=== PATIENT | male | born 1955 | race Caucasian/White ===

== ENCOUNTER → 2018-12-06 10:59 | Outpatient (CLI) | payer BC, SELFPAY ==
--- NOTE | 2018-12-06 11:07 | XR_ITS ---
XR chest 2V HISTORY: ITS.REASON: COUGH ORDERING PHYSICIAN: Marito Mckeon MD PATIENT AGE: 62 years COMPARISON: 11/30/2010 FINDINGS: The cardiomediastinal silhouette and pulmonary vascularity are within normal limits. The lungs are clear without infiltrates, suspicious nodules, or pleural effusions. No acute bony abnormalities. IMPRESSION: Negative chest, no acute finding
== END ==
PROVIDERS: PCP Family Medicine; Visit Provider Family Medicine
DX: R05 Cough (principal)
CPT/HCPCS: 71046

== ENCOUNTER → 2019-04-24 14:48 | Outpatient (CLI) | payer SELFPAY ==
--- NOTE | 2019-04-24 15:24 | CT_ITS ---
PROCEDURE: CT HEART W CALCIUM SCORE CLINICAL HISTORY: SCREENING COMPARISON: No exams were available for comparison TECHNIQUE: Axial images obtained with sagittal and coronal reformats. All CT scans at the facility use one or more dose reduction, viz: automated exposure control, ma/kV adjustment per patient size (including targeted exams where dose is matched to indication, i.e. head), or iterative reconstruction technique. FINDINGS: Coronary artery calcium score is 340 indicating and moderate plaque burden with high cardiovascular disease risk. Incidentally noted are mild atelectatic or fibrotic changes in the left lower lobe and lingula IMPRESSION: Moderate plaque burden with high cardiovascular disease risk Dictated by: Wilton Lunsford MD 04/25/2019 06:40 Electronically signed by Wilton Lunsford MD in [place] 04/25/2019 06:40
== END ==
PROVIDERS: PCP Family Medicine; Visit Provider Family Medicine
DX: Z13.6 Encounter for screening for cardiovascular disorders (principal)
CPT/HCPCS: 75571

== ENCOUNTER 2021-06-06 11:08 | Emergency (ER) | payer MEDICARE, SELFPAY ==
[2021-06-06 12:14] VITALS: BP 144/91; PULSE 102; RESP 18; TEMP 37.1; O2SAT 96; BMI 34.4
--- NOTE | 2021-06-06 12:22 | HMH.EDUTC ---
[facility] Disposition Clinical Impression: Acute sinus infection Qualifiers: Sinusitis location: unspecified location Recurrence: non-recurrent Qualified Code(s): J01.90 - Acute sinusitis, unspecified Disposition: Home, Self-Care Condition on Discharge: Good Instructions: Sinusitis, DI for Sinusitis Additional Instructions: Drink plenty of fluids. Take tylenol or ibuprofen for pain or fever. Take the medications as directed. Follow up with your regular doctor. GO TO THE ER FOR ANY WORSENING SYMPTOMS Quarantine until you know the results of your covid-19 test. If it is positive, the health department should call you and give you further instructions about your length of Quarantine and other things. Notify your school or workplace of your results and follow their instructions regarding return to work/school. Prescriptions: Promethazine/Dextromethorphan [Promethazine-Dm Syrup] 5 ml PO Q6HP PRN #240 ml PRN Reason: Cough Transmission Status: Received by [facility] Amoxicillin/Potassium Clav [Augmentin 875-125 Tablet] 1 tab PO Q12H 10 Days #20 tab Transmission Status: Received by [facility] Benzonatate [Benzonatate 100mg cap] 100 mg PO TIDP PRN #30 cap PRN Reason: Cough Transmission Status: Received by [facility] methylPREDNISolone [Medrol] 4 mg PO DIRECTED 6 Days #21 packet Transmission Status: Received by [facility] guaiFENesin [Mucinex 600mg tablet] 1 - 2 tab PO BIDP PRN #30 tab PRN Reason: Congestion Transmission Status: Received by [facility] Referrals: Artem Trammell MD [Primary Care Provider] - Time of Disposition: 12:53 Medical Decision Making - Medical Records Medical records reviewed: No: I reviewed the patient's medical records. - Rangel Inquiry Pt receiving controlled substance: No Vital Signs: 06/06/21 12:14 06/06/21 13:00 Temperature 98.8 F 98.8 F Temperature Source Oral Pulse Rate 102 H Pulse Rate [Right Brachial] 102 H Respiratory Rate 18 18 Blood Pressure 144/91 H Blood Pressure [Right Arm] 144/91 H Blood Pressure Mean [Right Arm] 108 Blood Pressure Source [Right Arm] Automatic Cuff Blood Pressure Position [Right Arm] Sitting 02 Sat by Pulse Oximetry 96 Orders (Tests/Meds): ED MEDICATIONS Discontinued Medications Generic Name Dose Route Start Last Admin Trade Name Benjamin PRN Reason Stop Dose Admin Ceftriaxone Sodium 1 gm 06/06/21 12:49 06/06/21 12:59 Ceftriaxone 1gm Vial IM 06/06/21 12:50 1 gm ONCE ONE Administration Lidocaine HCl 0 ml 06/06/21 12:49 06/06/21 12:59 Lidocaine 1% 5ml Pf Vial IM 06/06/21 12:50 2.1 ml ONCE ONE Administration Methylprednisolone Sodium Succinate 125 mg 06/06/21 12:49 06/06/21 13:00 Methylprednisolone Sod Succ 125mg Vial IM 06/06/21 12:50 125 mg ONCE ONE Administration [facility] HPI - General Stated complaint: coivd test/symptoms Time Seen by Provider: 06/06/21 12:22 Mode of Arrival: Ambulatory Source of Information: Patient Description of Symptoms (Recalled from Triage Doc. by RN): sinus issues. headache. cough HEENT Symptoms (Recalled from RN notes): Yes Resp Symptoms (Recalled from RN notes): Yes Skin Symptoms (Recalled from RN notes): No MS Symptoms (Recalled from RN notes): No Functional Status (Recalled from RN notes): yes - History of Present Illness Provider Complaint: He states that he has had sinus congestion, sore throat and a cough for the past 3 days. He has been fully vaccinated for covid-19, but he would like to be tested anyway because of Thanksgiving coming up. He has a history of getting sinus infections in the fall like now. - Related Data Home Medications Medication Instructions Recorded Confirmed Citalopram Hydrobromide 20 mg PO DAILY 06/06/21 06/06/21 [Citalopram 20mg Tablet] Fluticasone Propionate 16 gm * DAILY 06/06/21 06/06/21 Montelukast Sodium 10 mg PO DAILY 06/06/21 06/06/21 taras
[2021-06-06 13:00] VITALS: BP 144/91; PULSE 102; RESP 18; TEMP 37.1; O2SAT 96
== END 2021-06-06 13:00 | disposition home or self-care (01) ==
PROVIDERS: Emergency Provider Nurse Practitioner Family; PCP Family Medicine
DX: U07.1 COVID-19 (principal); J01.90 Acute sinusitis, unspecified
CPT/HCPCS: G0463; 96372; 99202; C9803; U0003; U0005

== ENCOUNTER → 2023-05-01 13:40 | Outpatient (CLI) | payer MEDICARE, SELFPAY | PROVIDERS: PCP Family Medicine; Visit Provider Family Medicine | DX: G47.30 Sleep apnea, unspecified (principal); R40.0 Somnolence; R51.9 Headache, unspecified; R06.83 Snoring; G47.33 Obstructive sleep apnea (adult) (pediatric) | CPT/HCPCS: G0399 ==

== ENCOUNTER 2024-01-30 12:26 | Outpatient (CLI) | payer MEDICARE, SELFPAY ==
--- OUTSIDE RECORDS SUMMARY | 2024-01-30 12:30 | XMS_ITS ---
Author Name Unknown Organization [facility] No information ASSESSMENT No information CHIEF COMPLAINT No information Immunizations Date Vaccine Dateadministered Timeadministered Vaccinecode Do se Reel Slitter Duedate Cptcode Cvxcode Manufacturercode Administeredby 02/20 00:00 :00 Shingrix 02/20/2023 09:25:00 09:25:00 [id number] 11/29/19 00:00:00 [id number] 121 [email or web address]ff 05/26 00:00 :00 Shingrix 05/26/2023 08:30:00 08:30:00 [id number] [employer] ne 04/15/20 00:00:00 [id number] 121 [email or web address]ff OBJECTIVE DATA No information PHYSICAL EXAMINATION No information TREATMENT PLAN No information PROBLEMS No information RESULTS No information REVIEW OF SYSTEMS No information SUBJECTIVE DATA No information VITAL SIGNS No information MEDICATIONS No information
== END 2024-01-30 23:59 | disposition home or self-care (01) ==
PROVIDERS: PCP Family Medicine; Visit Provider Family Medicine
DX: I49.9 Cardiac arrhythmia, unspecified (principal)
CPT/HCPCS: 93225; 93227

== ENCOUNTER 2024-02-16 15:19 | Outpatient (CLI) | payer MEDICARE, SELFPAY | END 2024-02-16 23:59 | disposition home or self-care (01) | LOC: RT 15:23 | PROVIDERS: PCP Family Medicine; Visit Provider Family Medicine | DX: I49.9 Cardiac arrhythmia, unspecified (principal); I47.19 Other supraventricular tachycardia | CPT/HCPCS: 93270 ==

== ENCOUNTER 2024-03-06 10:15 | Outpatient (CLI) | payer MEDICARE, SELFPAY ==
--- NOTE | 2024-03-06 10:15 | CA_ITS ---
APPROVED REPORT EXAM: Comprehensive 2D, Doppler, and color-flow Echocardiogram Head Bookkeeper: Cindi Gomez CRT Ht: 5 ft 9 in Wt: 230lbs BSA: 2.19 BP: 127/92 mmHg Indications: Abnormal ECG, Chest Pain, CAD 2D Dimensions LA Volume 35.00 mL LA Volume Index 15.60 mL/m2 (M/F) 16-34 M-Mode Dimensions RVDd 3.26 cm (0.9-2.6) LA Diam 3.67 cm (1.9-4.0) LVDd 4.78 cm (3.5-5.7) LVDs 2.30 cm (3.5-5.7) IVSd 1.84 cm (0.6-1.1) PWd 0.60 cm (0.6-1.1) EF (Teich) 83.00% FS 51.90% EDV (Teich) 106.50 mL TAPSE 1.70 (<1.7) ESV (Teich) 18.10 mL LV Diastology E Decel Time 203 (160-240 msec) E/A Ratio 0.76 MED A' 9.20 cm/s LAT A' 10.90 cm/s Aortic Valve AO Peak GR. 6.40 mmHg Mitral Valve MV E Max Chris. 50.0 (40-130 cm/s) MV A Velocity 66.0 (40-130 cm/s) E/A Ratio 0.76 MV PHT 60.0 ms Pulmonary Valve PV Peak Velocity 127.0 (50-150 cm/s) Tricuspid Valve TR P. Velocity 217.00 cm/s RAP Estimate 10.00 mmHg RVSP 28.80 mmHg Left Ventricle The left ventricle is normal size. The left ventricular systolic function is normal. The left ventricular ejection fraction is within the normal range. There is increased LV wall thickness. There is normal LV segmental wall motion. The left ventricular diastolic function is normal. LVEF is 55%. Right Ventricle Right ventricle is mildly dilated. Right ventricle is mildly hypokinetic. Atria The left atrium size is normal. The right atrium size is normal. There is no color Doppler evidence of interatrial shunt. Aortic Valve The aortic valve is mildly thickened. There is no aortic valvular stenosis. No aortic regurgitation is present. Mitral Valve The mitral valve is normal in structure. No evidence of mitral valve stenosis. There is no mitral valve regurgitation noted. Tricuspid Valve Tricuspid valve is grossly normal in structure and function. Mild tricuspid regurgitation. RVSP is 20-25 mmHg. Pulmonic Valve The pulmonary valve is normal in structure. Trace pulmonic regurgitation. Great Vessels The aortic root is normal in size. The ascending aorta is normal in size. IVC is normal in size and collapses >50% with inspiration. Pericardium There is no pericardial effusion. Other Information Study Quality: Fair Conclusion Normal LV systolic function. Mild RV dilation with mild reduction in RV function. Mild TR. Electronically signed by : Beverly Iraheta MD 03/11/2024 11:50:45
--- NOTE | 2024-03-06 10:55 | NM_ITS ---
APPROVED REPORT Exam: Nuclear Stress Test Indication: htn, diabetes, hyperlipidemia, c.p., sob, abn ekg Patient Location: Outpatient Stress Tech: Gissel Trejo [place] Tech:Geri Sim, ARRT, RT (R)(N) Ht: 5 ft 9 in Wt: 225 lbs HR: 84 bpm BP: 157/107 mmHg BSA: 2.17 m2 TID: 1.16 BMI: 33.2 History: htn, diabetes, hyperlipidemia, c.p., sob, abn ekg Procedure: Patient exercised on Hugh protocol 7:09 minutes and sec, resting heart rate 154 bpm, resting blood pressure 178/90 mmHg, with exercise maximum heart rate achived was 154 bpm which is 101 % of the maximum predicted heart rate and blood pressure was 178/90 mmHg. Test was stopped due to fatigue. Patient has average exercise capacity, achieved 10.1 METs of workload on treadmill, the blood pressure response to exercise was normal . Cardiac Stress and Resting SPECT Images: Cardiac Stress and Resting SPECT images were obtained using technetium 99m Myoview 32.2 mCi stress and 10.28 mCi at rest. Resting and stress imaging in supine and prone positions demonstrate a medium-sized, moderate, predominantly reversible perfusion defect in the basal to mid inferior LV wall. Gated imaging demonstrates low-normal global LV systolic function. There is mild hypokinesis in the inferior LV wall. LVEF is calculated at 52%. Conclusion: Medium-sized, moderate, predominantly reversible perfusion defect in the basal to mid inferior LV wall. Findings are suggestive of reversible ischemia. Gated imaging demonstrates low-normal global LV systolic function. There is mild hypokinesis in the inferior LV wall. LVEF is calculated at 52%. Electronically signed by : Beverly Iraheta MD 03/07/2024 18:12:49
[2024-03-06] MEDS: SODIUM CHLORIDE 0.9% 10ML SYR (RAD ONLY) 10 ML IV ×2 (11:45→13:05)
--- NOTE | 2024-03-06 13:32 | CA_ITS ---
APPROVED REPORT Exam: Exercise Treadmill Technologist: Gissel Ewing, Ht: 5 ft 9 in Wt: 230 lbs BSA: 2.19 m2 HR: 71 bpm BP: 156/111 mmHg Rhythm: NSR Medical History Medications: Omeprazole,,,,, Simvastatin,,,,, Glimepiride,,,,, Carvedilol,,,,, Citalopram,,,,, Farxiga,,,,, Montelukast,,,,, Ativan,,,,, Levocetirizine,,,,, FluTICASONE Propionate,,,,, Testosterone oypionate,,,,, Stress Test Details Test: Hugh HR Resting HR: 84 bpm Max Heart Rate (APMHR): 152 bpm Max HR Achieved: 154 bpm Target HR (85% APMHR): 129 bpm % of APMHR: 101 Recovery HR: 80 bpm BP Resting BP: 157.0/107.0 mmHg Max BP: 178.0/90.0 mmHg Recovery BP: 141.0/85.0 mmHg ECG Resting ECG: NSR, cannot R/O old inferior [place] Stress EC mm horizontal ST depression Arrhythmia: PACs, PVCs, 1 ventricular couplet Recovery ECG: Return to baseline within 3 minutes of recovery Recovery Arrhythmia: PACs, PVCs Clinical Exercise duration: 07:09 min Highest Stage Achieved: III Exercise capacity: 10.1 METs Stress ECG Conclusion Exercised 7:09 on Hugh Protocol Max HR: 154 % of PM: 101% Max BP: 178/90 METs: 10.1 Test stopped due to: Light-headed, SOA Symptoms: Light-headed. No CP. Arrhythmias/Ectopy: PAC, PVC, One ventricular couplet. ST-T Changes: [address] depression. Conclusion: EKG changes (+) for ischemia. Myoview images reported separately. Test Summary REST . . . . . . . Sitting REST . . . . . . . Standing REST 05:10 0.0 0.0 84 . 157/107 . . Stage 1 01:00 10.0 1.7 100 . . . . Stage 1 02:00 10.0 1.7 114 . . . . Stage 1 03:00 10.0 1.7 117 . 164/ 90 . . Stage 2 01:00 12.0 2.5 122 . . . . Stage 2 02:00 12.0 2.5 127 . . . . Stage 2 03:00 12.0 2.5 140 . 178/ 90 . . Stage 3 . . . . . . . Myoview Injected Stage 3 01:00 14.0 3.4 149 . . . . Stage 3 01:09 14.0 3.4 151 . . . Stop exercise at 07:09 RECOVERY 01:00 0.0 0.0 118 . . . . RECOVERY 02:00 0.0 0.0 93 . . . . RECOVERY 03:00 0.0 0.0 91 . 153/ 90 . . RECOVERY 04:00 0.0 0.0 92 . 157/ 93 . . RECOVERY 05:00 0.0 0.0 87 . 157/ 93 . . RECOVERY 05:56 0.0 0.0 87 . 141/ 85 . . Electronically signed by : Beverly Iraheta MD 03/07/2024 18:08:54
[2024-03-06] MEDS: ISOTOPE MYOVIEW (PER STUDY) 1 DOSE IV (14:54)
== END 2024-03-06 23:59 | disposition home or self-care (01) ==
LOC: RT 10:15
PROVIDERS: PCP Family Medicine; Visit Provider Nurse Practitioner
DX: R07.9 Chest pain, unspecified (principal); I51.7 Cardiomegaly; I25.10 Atherosclerotic heart disease of native coronary artery without angina pectoris; R06.00 Dyspnea, unspecified; R42 Dizziness and giddiness; R93.1 Abnormal findings on diagnostic imaging of heart and coronary circulation
CPT/HCPCS: 78452; 93017; 93018; 93306; A9502

== ENCOUNTER 2024-04-15 07:52 | Day surgery (SDC) | payer MEDICARE, SELFPAY ==
[2024-04-15] VITALS (9 sets, daily range): BP systolic 128–155; BP diastolic 61–98; PULSE 57–75; RESP 18–20; TEMP 36.6; O2SAT 90–98; BMI 33.7
--- NOTE | 2024-04-15 07:06 | IR_ITS ---
APPROVED REPORT Patient Location: Outpatient PROCEDURES Left heart catheterization Left ventriculogram Selective coronary angiogram INDICATION Abnormal Myoview, Angina pectoris, Abnormal CCTA, Established coronary artery disease Informed consent was obtained prior to the procedure. COMPLICATIONS NONE Estimated Blood Loss: LESS THAN 10 ML TECHNIQUE One percent lidocaine used to anesthetize the right anterior aspect of the wrist. The right radial artery was accessed via the Seldinger technique. A 6 [place] sheath was placed in the right radial artery. 2.5 mg of Verapamil, 800 mcg of nitroglycerin, 1mg Lidocaine and 5000 U Heparin were given through the arterial sheath. The papa catheter was also used to perform left heart catheterization, left ventriculogram and selective coronary angiogram. At the end of the procedure the sheath was removed good hemostasis was achieved using Traclet band, patient was transferred to the postop holding area in stable condition. ANGIOGRAPHIC RESULTS The left main artery Normal The left anterior descending artery Has proximal 30% calcified stenosis with an additional mid vessel 30% calcified stenosis. A large first diagonal artery originates within the proximal 30% stenosis with the diagonal having an eccentric calcified 70 to 80% stenosis with the diagonal artery being 2.75 mm in diameter The circumflex artery Is nondominant and has proximal 10 to 20% stenoses with a 20% stenosis in the proximal portion of the large first obtuse marginal artery. The second obtuse marginal artery is approximately 2 mm in diameter and has an ostial 50% stenosis The right coronary artery Is dominant and has a proximal concentric 30% stenosis The MARTIN ventriculogram reveals Normal 65% The left ventricular end-diastolic pressure 10 mmHg IMPRESSION Coronary artery disease as described above most notably with severe stenosis in the ostial proximal segment of a medium to large first diagonal artery which is best managed medically Diffuse mild to moderate coronary disease as described above Normal ejection fraction Normal LVEDP PLAN 1. Recommend medical management at this time with aggressive risk factor modification 2. Diagonal artery stenoses such as what is described above respond favorably to medical management. LDL should be less than 55 to be achieved with high intensity statin 3. Maximize antianginal medications 4. Should patient's angina become recalcitrant in the future and and refractory to standard medications consideration could be given to stent the LAD and diagonal artery. The diagonal artery cannot be stented without placing a bifurcating stent in the proximal LAD. Because of this medical management is most warranted Electronically signed by : Jori Hallman MD 04/15/2024 12:13:27
[2024-04-15 08:29] LABS: Basophils % 0.2 % (0.1-2.0); Eosinophils # 0.1 K/mm3 (0.0-0.4); Eosinophils % 1.2 % (0.1-12.0); Hematocrit 49.9 % (42.0-52.0); Hemoglobin 15.6 g/dL (14.1-18.0); Lymphocytes % 17.3 % (10-50); Mean Corpuscular HGB Conc 31.3 g/dL (31.8-35.4); Mean Corpuscular Hemoglobin 28.5 pg (27.0-31.2); Mean Corpuscular Volume 91.2 fl (80-94); Mean Platelet Volume 6.5 fl (7.4-10.4); Monocytes # 0.5 K/mm3 (0.1-1.0); Neutrophils # 8.9 K/mm3 (1.8-7.8); Neutrophils % 77.2 % (37.0-80.0); Platelet Count 284 K/mm3 (142-424); Red Blood Count 5.47 M/mm3 (4.60-6.20); Red Cell Distribution Width 14.3 % (11.5-17.5); White Blood Count 11.5 K/mm3 (4.8-10.8)
[2024-04-15 08:31] LABS: Chloride 100 mmol/L (98-107)
[2024-04-15 08:32] LABS: Potassium 3.8 mmoL/L (3.5-5.1); Sodium 138 mmol/L (136-145)
[2024-04-15 08:34] LABS: Blood Urea Nitrogen 23 mg/dl (9-20); Creatinine Clearance Estimated 104 mL/min (50-200); Estimated Glomerular Filt Rate 84 ml/min (>60); GFR (African American) 102 ML/MIN (>60)
[2024-04-15 08:35] LABS: Anion Gap 10.8 mEq/L (5-15); Calcium 9.9 mg/dl (8.4-10.2); Carbon Dioxide 31 mmol/L (22.0-30.0); Glucose 163 mg/dl (74-100)
[2024-04-15] MEDS: VERAPAMIL 2.5MG/ML 2ML VIAL 2.5 MG IV (11:02)
[2024-04-15] MEDS: LIDOCAINE 1% 10ML MDV 20 ML IJ (11:02)
[2024-04-15] MEDS: diphenhydrAMINE 50MG/ML VIAL 50 MG IV (11:02)
[2024-04-15] MEDS: NITROGLYCERIN 800MCG/8ML SYR (CATH LAB) 800 MCG IA (11:03)
[2024-04-15] MEDS: HEPARIN 1,000 UNITS/ML 10ML VIAL (CATH LAB) 10000 UNIT IV (11:03)
[2024-04-15] MEDS: HEPARIN 1,000 UNITS/500ML NS (CATH LAB) 3000 UNIT IV (11:03)
[2024-04-15] MEDS: 0.9 % SODIUM CHLORIDE 500 ML 25 ML IV (11:04)
[2024-04-15] MEDS: MIDAZOLAM HCL 1MG/1ML 5ML VIAL 1 MG IV (11:06)
[2024-04-15] MEDS: FENTANYL 100MCG/2ML VIAL 50 MCG IV (11:06)
[2024-04-15] MEDS: IOPAMIDOL-370 (76%);100ML BOTTLE 80 ML IV (14:24)
== END 2024-04-15 13:52 | disposition home or self-care (01) ==
PROVIDERS: PCP Family Medicine; Visit Provider Internal Medicine
DX: R93.1 Abnormal findings on diagnostic imaging of heart and coronary circulation (principal); R42 Dizziness and giddiness; R06.00 Dyspnea, unspecified; R07.9 Chest pain, unspecified; I25.118 Atherosclerotic heart disease of native coronary artery with other forms of angina pectoris; Z79.899 Other long term (current) drug therapy
CPT/HCPCS: 80048; 85025; 93458; 99152; C1725; C1769; J1200; J1644; J2250; J3010; Q9967

== ENCOUNTER 2024-05-17 10:28 | Outpatient (RCR) | payer MEDICARE, SELFPAY | END 2024-05-20 14:00 | disposition home or self-care (01) | LOC: PT 10:28 | PROVIDERS: Visit Provider Physician Assistant | DX: I25.10 Atherosclerotic heart disease of native coronary artery without angina pectoris (principal); R07.89 Other chest pain; R06.09 Other forms of dyspnea; R42 Dizziness and giddiness; R93.1 Abnormal findings on diagnostic imaging of heart and coronary circulation ==

== ENCOUNTER 2024-10-28 10:45 | Outpatient (CLI) | payer MEDICARE, SELFPAY ==
--- NOTE | 2024-10-28 10:48 | XR_ITS ---
FINAL REPORT CLINICAL HISTORY: SIDE PAIN-both sides FINDINGS: RIBS WITH CHEST 4 views of the ribs with an AP view of the chest were obtained. Heart mediastinum are within normal limits. There is minimal scarring or atelectasis at the left lung base. Lungs are otherwise clear. There is no pneumothorax. No displaced rib fracture is seen. IMPRESSION: No rib fracture identified. Minimal scarring or atelectasis at the left lung base. Reviewed, Interpreted and Dictated by Alex Wheeler MD Transcribed by Mckenzie Ocasio Authenticated and . [facility]
== END 2024-10-28 23:59 | disposition home or self-care (01) ==
LOC: RAD 10:46
PROVIDERS: PCP Family Medicine; Visit Provider Nurse Practitioner Family
DX: R10.9 Unspecified abdominal pain (principal)
CPT/HCPCS: 71111

== ENCOUNTER 2025-03-19 09:14 | Outpatient (CLI) | payer MEDICARE, SELFPAY ==
--- OUTSIDE RECORDS SUMMARY | 2025-03-19 09:29 | XMS_ITS | Encounter Summary ---
Author Organization [employer] ([place], [place], [place], [place]) Address [address] [place] [address] Care Team Providers Care Real Estate Office Supervisor Name Role Phone Unavailable Primary Care Provider Unavailabl e Reason for Referral * Consultation (Routine) - Closed Specialty Diagnoses / Procedures Referred By Bassem chang Referred To Contact Behavioral Health Diagnoses Other amnesia Reyna Hernandez PA-C [address] [place] [address] Phone: tel: Mary Marquez, [place] [address] [place] [address] Phone: tel: fax: Referral ID Status Reason Start Date Expiration Date V isits Requested Visits Authorized [id number] Closed Specialty Services Required 06/20/2024 06/20/2025 1 1 Encounter Details Date Type Department Care Team (Late st Contact Info) Description 06/20/2024 Outside Orders [facility] Central Scheduling [address] [place] [address] Reyna Hernandez PA-C [address] [place] [address] Other amnesia (Primary Dx) Social History Tobacco Use Types Packs/Day Years Used Date Smoking Tobacco: Never Assessed Food Insecurity Answer Date Recorded Food run out past 12 months Not on file 07/2023 Food did not last past 12 months Not on file 02/15/2024 Employment Answer Date Recorded Help finding and keeping a job Not on file 0 02/15/2024 Family and Community Support Answer Scott e Recorded Help with Day to Day Activities Not on file 02/15/2024 Feeling Lonely or Isolated Not on file 02/14 Educational Attainment Answer Date Bhupendra rded Speak language other than Citizen Of [place] at home Not on file 02/15/2024 Want help with school or training Not on file 02/15/2024 Substance Use Answer Date Recorded Used prescription meds for non-medical reasons N ot on file 02/15/2024 Used illegal drugs past 12 months Not on file 02/15/2024 Sex and Gender Information Value Date Recorded Sex Assigned at Not on file Legal Sex Male 4:49 PM CDT Gender Identity Not on file Sexual Orientation Not on file documented as of this encounter Plan of Treatment Scheduled Referrals Name Type Priority Associated Diagnoses Order Schedule Ambulatory referral to Behavioral Health Outpatient Referral Routine Other amnesia Expected: 06/20/2024, Expires: 06/20/2025 documented as of this encounter Visit Diagnoses Diagnosis Other amnesia- Primary documented in this encounter
--- OUTSIDE RECORDS SUMMARY | 2025-03-19 09:29 | XMS_ITS | Referral Summary ---
Author Organization [employer] ([place], [place], [place], [place]) Address [address] [place] [address] Care Team Providers Care Manager Performance Name Role Phone Unavailable Primary Care Provider Unavailabl e Social History Tobacco Use Types Packs/Day Years [...] Date Bhupendra rded Speak language other than Syriac at home Not on file 02/15/2024 Want [...] on file Sexual Orientation Not on file Plan of Treatment Not on file Insurance BC [facility] ACCESS PPO MAP
--- OUTSIDE RECORDS SUMMARY | 2025-03-19 09:29 | XMS_ITS | Clinical Summary ---
Author Organization [employer] ([place], [place], [place], [place]) Address [address] [place] [address] Care Team Providers Care Decatizer Name Role Phone Unavailable Primary Care Provider [...] Date Bhupendra rded Speak language other than Hebrew at home Not on file 02/15/2024 Want [...] Orientation Not on file Plan of Treatment Health Maintenance Due Date Last Done Comments CT Colonography 1955 Colonoscopy 1955 Colorectal Cancer Screening 1955 FOBT/FIT 1955 Fit-DNA (Cologuard) 1955 Sigmoidoscopy 1955 Depression Screening (12+) 1967 Tobacco Cessation Counseling and Screening (12+) 1967 Hepatitis C Screening 12/22/1973 DTAP/TDAP/TD VACCINES (1 - Tdap) 12/22/1974 Pneumococcal 50+ years (1 of 1 - PCV) 12/22/2005 Shingles Vaccine (Zoster) (2 of 2) 07/21/20232022 COVID-19 VACCINE (2 - season) 03/17/202404/2021 Falls Risk Screening 07/17/2024 Medicare Initial AWV [id number] 07/18/2024 Influenza Vaccine (#1) 2025 04/26/2023, 2021 Respiratory Syncytial Virus (RSV) Adult or (1 - 1-dose 75+ series) 12/22/2030 Insurance O MAP
== END 2025-03-19 23:59 | disposition home or self-care (01) ==
LOC: RT 09:14
PROVIDERS: PCP Family Medicine; Visit Provider Nurse Practitioner
DX: I49.1 Atrial premature depolarization (principal); I47.19 Other supraventricular tachycardia; I49.3 Ventricular premature depolarization; I47.20 Ventricular tachycardia, unspecified; I44.2 Atrioventricular block, complete
CPT/HCPCS: 93270

== ENCOUNTER 2025-04-02 15:21 | Outpatient (CLI) | payer MEDICARE, SELFPAY ==
[2025-04-02 15:53] LABS: Blood Urea Nitrogen 12 mg/dl (9-20); Creatinine,Serum 1.10 mg/dl (0.66-1.25); Estimated Glomerular Filt Rate 66 ml/min (>60); GFR (African American) 80 ML/MIN (>60)
== END 2025-04-02 23:59 | disposition home or self-care (01) ==
LOC: LAB 15:24
PROVIDERS: PCP Family Medicine; Visit Provider Nurse Practitioner
DX: H53.9 Unspecified visual disturbance (principal); R42 Dizziness and giddiness
CPT/HCPCS: 36415; 82565; 84520

== ENCOUNTER 2025-04-03 07:47 | Outpatient (CLI) | payer MEDICARE, SELFPAY ==
--- OUTSIDE RECORDS SUMMARY | 2025-04-03 07:49 | XMS_ITS | Referral Summary ---
Author Organization [employer] ([place], [place], [place], [place]) Address [address] [place] [address] Care Team Providers Care Chief Service Observer Name Role Phone Unavailable Primary Care Provider [...] Date Bhupendra rded Speak language other than [place] Islander at home Not on file 02/15/2024 Want [...] Plan of Treatment Not on file Insurance BCBS [facility] [employer] ACC[facility] MAP
--- OUTSIDE RECORDS SUMMARY | 2025-04-03 07:49 | XMS_ITS | Clinical Summary ---
Author Organization [employer] ([place], [place], [place], [place]) Address [address] [place] [address] Care Team Providers Care Wool Washer Feeder Name Role Phone Unavailable Primary Care Provider [...] Date Bhupendra rded Speak language other than Vietnamese at home Not on file 02/15/2024 Want [...] Shingles Vaccine (Zoster) (2 of 2) 07/21/20232022 Falls Risk Screening 07/17/2024 Medicare Initial AWV [id number] 07/18/2024 COVID-19 VACCINE (2 - season) 03/17/202504/2021 Influenza Vaccine (#1) 2025 04/26/2023, 2021 Respiratory Syncytial Virus (RSV) Adult or (1 - 1-dose 75+ series) 12/22/2030 Insurance O MAP
--- OUTSIDE RECORDS SUMMARY | 2025-04-03 07:49 | XMS_ITS | Encounter Summary ---
Author Organization [employer] ([place], [place], [place], [place]) Address [address] [place] [address] Care Team Providers Care Viticulturist Name Role Phone Unavailable Primary Care Provider Unavailabl e Reason for Referral * Consultation (Routine) - Closed Specialty Diagnoses / Procedures Referred By Bassem chang Referred To Contact Behavioral Health Diagnoses Other amnesia Reyna Hernandez PA-C [address] [place] [address] Phone: tel: Mary Marquez, MS [address] [place] [address] Phone: tel: fax: Referral ID Status Reason Start Date Expiration Date V isits Requested Visits Authorized [id number] Closed Specialty Services Required 06/20/2024 06/20/2025 1 1 Encounter Details Date Type Department Care Team (Late st Contact Info) Description 06/20/2024 Outside Orders [facility] Central Scheduling [address] [place] [address] Reyna Hernandez PA-C [address] [place] [address] Other amnesia (Primary Dx) Social History Tobacco [...] Date Bhupendra rded Speak language other than Rwandan at home Not on file 02/15/2024 Want [...]
--- NOTE | 2025-04-03 08:00 | CT_ITS ---
FINAL REPORT CLINICAL HISTORY: dizziness COMPARISON: None FINDINGS: CT NECK ANGIO, WITHOUT AND WITH CONTRAST TECHNIQUE: Thin section axial CT with contrast with multiplanar 3D MIP reconstruction. This study was performed with techniques to keep radiation doses as low as reasonably achievable, (ALARA). Individualized dose reduction techniques using automated exposure control or adjustment of mA and/or kV according to the patient's size were employed. NASCET criteria and technique was utilized during interpretation. FINDINGS: Note is made of a few thyroid nodules, the largest in the right lobe of the thyroid gland measuring 9 mm in size. Aortic arch: Arch shows no significant narrowing. Great vessel origins are widely patent. Right carotid: No significant stenosis is seen of the cervical common or internal carotid artery. Left carotid: No significant stenosis is seen of the cervical common or internal carotid artery. Vertebrals: Left vertebral artery is dominant. No significant stenosis is present. IMPRESSION: No significant stenosis of the cervical carotid arteries This study was performed using automated techniques to achieve radiation exposure as low as reasonably Reviewed, Interpreted and Dictated by Edward Melo MD Transcribed by Michelle Geller Authenticated and . [facility]
--- NOTE | 2025-04-03 08:00 | CT_ITS ---
FINAL REPORT CLINICAL HISTORY: dizziness COMPARISON: None FINDINGS: CTA HEAD TECHNIQUE: Thin section axial CT with contrast with 3D MIP reconstruction This study was performed with techniques to keep radiation doses as low as reasonably achievable, (ALARA). Individualized dose reduction techniques using automated exposure control or adjustment of mA and/or kV according to the patient's size were employed. FINDINGS: No aneurysm is seen. Major intracranial vessels are patent without significant stenosis. . IMPRESSION: Unremarkable This study was performed using automated techniques to achieve radiation exposure as low as reasonably achievable Reviewed, Interpreted and Dictated by Edward Melo MD Transcribed by Michelle Geller Authenticated and [facility]
[2025-04-03] MEDS: SODIUM CHLORIDE 0.9% 10ML SYR (RAD ONLY) 10 ML IV (08:36)
[2025-04-03] MEDS: 0.9 % SODIUM CHLORIDE 50 ML VIAL 40 ML IV (08:36)
[2025-04-03] MEDS: IOPAMIDOL-370 (76%);100ML BOTTLE 100 ML IV (08:36)
== END 2025-04-03 23:59 | disposition home or self-care (01) ==
LOC: RAD 07:47
PROVIDERS: PCP Family Medicine; Visit Provider Nurse Practitioner
DX: R42 Dizziness and giddiness (principal); H53.9 Unspecified visual disturbance
CPT/HCPCS: 70496; 70498; Q9967

== ENCOUNTER → 2025-04-07 11:25 | Day surgery (SDC) | payer MEDICARE, SELFPAY ==
[2025-04-01 12:57] VITALS: BMI 29.5
--- NOTE | 2025-04-04 17:51 | EXP.HP ---
History of Present Illness *Admission Date: 04/07/25 *History of present illness: Mr. Espinoza is a 69-year-old gentleman who is here for diagnostic EGD secondary to dysphagia, belching, reflux and hiccups. He has been on omeprazole for years. He does feel as if he was getting 1 within the lower retrosternal region as constant belching worse in the last year with the development of hiccups. He is on semaglutide and has developed some mild constipation. The examination is deemed medically necessary for diagnostic EGD. The patient has been seen, interviewed and examined prior to the procedure by both myself and the anesthesia provider. [facility] Disclaimer: The information contained in this section may have been updated after the patient was seen, as this information can be updated by other users. Medical History Visual disturbance Typical angina Diabetes mellitus Hyperlipidemia Abnormal nuclear cardiac imaging test Coronary artery disease Dyspnea Chest pain Abnormal CT scan of heart Abnormal blood test Surgical History History of eye surgery History of hand surgery Family History Other No significant family history Social History Smoking Status: Never smoker alcohol intake: never substance use type: denies use current occupational status: retired Travel in the last 8 weeks?: Inside the [place] Have you lived/traveled outside US in past 30 days?: No Contact w/someone who lives/traveled outside US past 30 days?: No Exposure to someone with infectious disease in past 14 days?: No Do you have a fever (greater than 100.4 F or 38 C)?: No Have you tested positive for COVID-19?: No Exposed to someone with COVID-19 in past 14 days?: No Do you have a sore throat?: No Do you have a cough?: No Do you have any weakness?: No Do you have any diarrhea?: No Are you experiencing any unusual bleeding?: No Do you have any muscle aches/pain?: No Do you have any abdominal pain?: No Are you experiencing loss of taste or smell?: No Other Medical History Have you received the Pneumonia Vaccine: Yes Review of Systems Review of Systems Review of systems (narrative): Negative *Cardiovascular Comments: Negative *Gastrointestinal Comments: Negative *Genitourinary Comments: Negative *Musculoskeletal Comments: Negative *Neurologic Comments: Negative Meds Home Medications and Allergies Home Medications ?Medication ?Instructions ?Recorded ?Confirmed ?Type fluticasone propionate 50 16 g * DAILY allergies 06/06/21 04/01/25 History mcg/actuation nasal spray,suspension montelukast 10 mg tablet 10 mg PO DAILY allergies 06/06/21 04/01/25 History dapagliflozin propanediol 10 mg 10 mg PO DAILY 02/26/24 04/01/25 History tablet (Farxiga) glimepiride 4 mg tablet 4 mg PO DAILY 02/26/24 04/01/25 History levocetirizine 5 mg tablet 5 mg PO DAILY 02/26/24 04/01/25 History testosterone cypionate 200 mg/mL 200 mg IM QMONTH 02/26/24 04/01/25 History intramuscular oil blood sugar diagnostic (Accu-Chek #10 ea 03/19/24 04/01/25 History Guide test strips) citalopram 40 mg tablet 40 mg PO DAILY 03/19/24 04/01/25 History lancets (Accu-Chek Softclix #100 ea 03/19/24 04/01/25 History Lancets) aspirin 81 mg tablet,delayed 81 mg PO DAILY #30 tabs 04/29/24 04/01/25 Rx release (Adult Aspirin Regimen) omeprazole 40 mg capsule,delayed 40 mg PO DAILY 07/26/24 04/01/25 History release nitroglycerin 0.4 mg sublingual 0.4 mg sublingual Q5M PRN chest 09/16/24 04/01/25 Rx tablet pain #20 tabs rosuvastatin 40 mg tablet (Crestor) 40 mg PO DAILY #30 tabs 10/21/24 04/01/25 Rx semaglutide 1 mg/dose (4 mg/3 mL) See Rx Instructions .Route 01/01/25 04/01/25 Rx subcutaneous pen injector (Ozempic) .COMPLEX #3 mL azelastine 137 mcg (0.1 %) nasal 137 mcg intranasal DAILY 02/03/25 04/01/25 History spray meclizine 25 mg tablet 25 mg PO Q8H PRN Dizziness Or 02/03/25 04/01/25 History Vertigo ranolazine 1,000 mg 1,000 mg PO BID #180 tabs 04/01/25 04/01/25 Rx tablet,extended release,12 hr New Prescriptions to Start Prescriptions: Allergies Allergy/AdvReac Type Severity Reaction Status Date / Time No Known Allergies Allergy Verified 04/01/25 12:54 Exam Data for Last 24 hours I & O for Last 24 hours: Intake & Output 04/01/25 04/02/25 04/03/25 04/04/25 23:59 23:59 23:59 23:59 Weight 200 lb *Routine HEENT Exam Head: Present normocephalic Eye: Present EOMI and PERRL ENT: Present mucous membranes moist *Routine Neck Exam Neck: Present supple *Routine Respiratory Exam Respiratory: Present CTA bilaterally *Routine Cardiovascular Exam Cardiovascular: Present RRR *Routine Abdominal Exam Abdominal: Present soft and normoactive bowel sounds; Absent tenderness *Routine Rectal Exam Rectal:: deferred *Routine Genitalia Exam Genitalia:: deferred *Routine Extremities Exam Extremities: Absent cyanosis, clubbing or edema *Routine Skin Exam Skin: Present warm; Absent rash *Routine Neurological Exam Neurological: Present alert and oriented X3 Assessment and Plan *Assessment and plan (1) Dysphagia: Status: Acute Category: Medical Code(s): R13.10 - Dysphagia, unspecified (2) Hiccups: Status: Acute Category: Medical Code(s): R06.6 - Hiccough (3) Belching: Status: Acute Category: Medical Code(s): R14.2 - Eructation (4) Acid reflux: Status: Acute Category: Medical Code(s): K21.9 - Gastro-esophageal reflux disease without esophagitis Plan A/P: 1. Dysphagia with belching, hiccups and reflux is the preprocedural diagnosis. The patient will be anesthetized/sedated using MAC sedation. The patient has been seen and examined. Cardiac and lung assessment prior to the examination is stable. Proceed with planned diagnostic EGD.
--- NOTE | 2025-04-07 07:23 | HMH.PROCNOTE ---
[facility] Procedure Note Date: 04/07/25 Procedure Note:: Upper Endoscopy Procedure Report: Esophagogastroduodenoscopy with cold biopsies and TTS balloon dilation Endoscopost: Rolando Valentine II, MD Referring Physician: [] Date of Procedure: April 07, 2025 Equipment: Olympus GIF-1100 standard upper endoscope Sedation: MAC sedation Indications: Mr. Espinoza is a 69-year-old gentleman who is here for diagnostic EGD secondary to dysphagia, belching, reflux and hiccups. He has been on omeprazole for years. He does feel as if he was getting 1 within the lower retrosternal region. He has constant belching worsened in the last year with the development of hiccups. He is on semaglutide and has developed some mild constipation. The examination is deemed medically necessary for diagnostic EGD. Procedure: Prior to the procedure, a history and physical exam was performed, and patient's medications and allergies were reviewed. The risks, benefits and alternatives of the sedation and procedure were discussed with the patient. All questions were answered and informed consent was obtained. The patient was brought to the procedure room. Patient identification and proposed procedure were verified by the physician and the nurse. The patient was placed in a left lateral decubitus position and the scope was passed under direct vision. Throughout the procedure, the patient's blood pressure, pulse, and oxygen saturations were monitored continuously. The upper GI endoscopy was accomplished without difficulty. The patient tolerated the procedure well. Findings: The scope was passed directly into the upper esophagus and advanced to the third portion of the duodenum. The post bulbar duodenum and duodenal bulb were normal with normal mucosa and conniventes. The scope was withdrawn through a normal duodenal bulb and pylorus into the stomach. []. The scope was then withdrawn into the esophagus. The remainder of the esophageal mucosa was normal. Impression: 1. [] Plan: []
--- NOTE | 2025-04-18 10:36 | EXP.HP ---
History of Present Illness *Admission Date: 04/24/25 *History of present illness: Mr. Espinoza is a 69-year-old gentleman who is here for diagnostic EGD secondary to excessive belching and hiccups. He also has had dysphagia that occurs approximately once monthly and feels like food gets hung in the lower retrosternal region. He does report constant belching that has worsened over the last year. He has been on semaglutide. He does have a history of GERD and takes omeprazole 40 mg by mouth daily that controls his heartburn. He does get some midsternal chest pressure and did have a cardiac catheterization with no significant CAD. He has never had an EGD. His last colonoscopy was in [place] in 2023. He has had some constipation. The examination is deemed medically necessary for diagnostic EGD. The patient has been seen, interviewed and examined prior to the procedure by both myself and the anesthesia provider. [facility] Disclaimer: The information contained in this section may have been updated after the patient was seen, as this information can be updated by other users. Medical History Visual disturbance Typical angina Diabetes mellitus Hyperlipidemia Abnormal nuclear cardiac imaging test Coronary artery disease Dyspnea Chest pain Abnormal CT scan of heart 340(2018) 430(2023) Abnormal blood test Surgical History History of eye surgery History of hand surgery Family History Other No significant family history Social History (Updated 04/24/25 @ 08:22 by Sumit Mcnamara RN) Smoking Status: Never smoker alcohol intake: never substance use type: denies use current occupational status: retired Travel in the last 8 weeks?: Inside the [place] Have you lived/traveled outside US in past 30 days?: No Contact w/someone who lives/traveled outside US past 30 days?: No Exposure to someone with infectious disease in past 14 days?: No Do you have a fever (greater than 100.4 F or 38 C)?: No Have you tested positive for COVID-19?: No Exposed to someone with COVID-19 in past 14 days?: No Do you have a sore throat?: No Do you have a cough?: No Do you have any weakness?: No Are you experiencing any nausea/vomitting?: No Do you have any diarrhea?: No Are you experiencing any unusual bleeding?: No Do you have any muscle aches/pain?: No Do you have any abdominal pain?: No Are you experiencing loss of taste or smell?: No Other Medical History Have you received the Pneumonia Vaccine: Yes Review of Systems Review of Systems Review of systems (narrative): Negative *Cardiovascular Comments: Negative *Gastrointestinal Comments: Negative *Genitourinary Comments: Negative *Musculoskeletal Comments: Negative *Neurologic Comments: Negative Meds Home Medications and Allergies Home Medications ?Medication ?Instructions ?Recorded ?Confirmed ?Type fluticasone propionate 50 16 g * DAILY allergies 06/06/21 04/24/25 History mcg/actuation nasal spray,suspension montelukast 10 mg tablet 10 mg PO DAILY allergies 06/06/21 04/24/25 History dapagliflozin propanediol 10 mg 10 mg PO DAILY 02/26/24 04/24/25 History tablet (Farxiga) levocetirizine 5 mg tablet 5 mg PO DAILY 02/26/24 04/24/25 History blood sugar diagnostic (Accu-Chek #10 ea 03/19/24 04/24/25 History Guide test strips) citalopram 40 mg tablet 40 mg PO DAILY 03/19/24 04/24/25 History lancets (Accu-Chek Softclix #100 ea 03/19/24 04/24/25 History Lancets) aspirin 81 mg tablet,delayed 81 mg PO DAILY #30 tabs 04/29/24 04/24/25 Rx release (Adult Aspirin Regimen) omeprazole 40 mg capsule,delayed 40 mg PO DAILY 07/26/24 04/24/25 History release nitroglycerin 0.4 mg sublingual 0.4 mg sublingual Q5M PRN chest 09/16/24 04/24/25 Rx tablet pain #20 tabs semaglutide 1 mg/dose (4 mg/3 mL) See Rx Instructions .Route 01/01/25 04/24/25 Rx subcutaneous pen injector (Ozempic) .COMPLEX #3 mL azelastine 137 mcg (0.1 %) nasal 137 mcg intranasal DAILY 02/03/25 04/24/25 History spray meclizine 25 mg tablet 25 mg PO Q8H PRN Dizziness Or 02/03/25 04/24/25 History Vertigo ranolazine 500 mg tablet,extended 500 mg PO BID #60 tabs 04/16/25 04/24/25 Rx release,12 hr testosterone cypionate 200 mg/mL 200 mg IM Q2W 04/16/25 04/24/25 History intramuscular oil rosuvastatin 40 mg tablet (Crestor) 40 mg PO DAILY #30 tabs 04/22/25 04/24/25 Rx New Prescriptions to Start Prescriptions: Allergies Allergy/AdvReac Type Severity Reaction Status Date / Time No Known Allergies Allergy Verified 04/24/25 08:19 Exam *Routine HEENT Exam Head: Present normocephalic Eye: Present EOMI and PERRL ENT: Present mucous membranes moist *Routine Neck Exam Neck: Present supple *Routine Respiratory Exam Respiratory: Present CTA bilaterally *Routine Cardiovascular Exam Cardiovascular: Present RRR *Routine Abdominal Exam Abdominal: Present soft and normoactive bowel sounds; Absent tenderness *Routine Rectal Exam Rectal:: deferred *Routine Genitalia Exam Genitalia:: deferred *Routine Extremities Exam Extremities: Absent cyanosis, clubbing or edema *Routine Skin Exam Skin: Present warm; Absent rash *Routine Neurological Exam Neurological: Present alert and oriented X3 Assessment and Plan *Assessment and plan (1) Hiccups: Status: Acute Category: Medical Code(s): R06.6 - (2) Belching: Status: Acute Category: Medical Code(s): R14.2 - (3) GERD (gastroesophageal reflux disease): Status: Acute Category: Medical Code(s): K21.9 - (4) Dysphagia: Status: Acute Category: Medical Code(s): R13.10 - Plan A/P: 1. Belching, hiccups, GERD and intermittent dysphagia is the preprocedural diagnosis. The patient will be anesthetized/sedated using MAC sedation. The patient has been seen and examined. Cardiac and lung assessment prior to the examination is stable. Proceed with planned EGD.
[2025-04-22 09:28] VITALS: BMI 29.5
--- NOTE | 2025-04-23 07:51 | HMH.PROCNOTE ---
[facility] Procedure Note Date: 04/24/25 Time: 08:43 Procedure Note:: Upper Endoscopy Procedure Report: Esophagogastroduodenoscopy with cold biopsies and TTS balloon dilation Endoscopost: Rolando Valentine II, MD Referring Physician: Latesha Trammell M.D. Date of Procedure: April 24, 2025 Equipment: Olympus GIF-1100 standard upper endoscope Sedation: MAC sedation Indications: Mr. Espinoza is a 69-year-old gentleman who is here for diagnostic EGD secondary to excessive belching and hiccups. He also reports globus sensation with frequent clearance of the throat. He is on omeprazole daily which controls his heartburn. He also has had dysphagia that occurs approximately once monthly and feels like food gets hung in the lower retrosternal region. He does report constant belching that has worsened over the last year. He has been on semaglutide. He does have a history of GERD and takes omeprazole 40 mg by mouth daily that controls his heartburn. He does get some midsternal chest pressure and did have a cardiac catheterization with no significant CAD. He has never had an EGD. He reports no bloating or epigastric discomfort. His last colonoscopy was in [place] in 2023. He has had some constipation. He does take combined MiraLAX plus Metamucil daily or every other day. The examination is deemed medically necessary for diagnostic EGD. Procedure: Prior to the procedure, a history and physical exam was performed, and patient's medications and allergies were reviewed. The risks, benefits and alternatives of the sedation and procedure were discussed with the patient. All questions were answered and informed consent was obtained. The patient was brought to the procedure room. Patient identification and proposed procedure were verified by the physician and the nurse. The patient was placed in a left lateral decubitus position and the scope was passed under direct vision. Throughout the procedure, the patient's blood pressure, pulse, and oxygen saturations were monitored continuously. The upper GI endoscopy was accomplished without difficulty. The patient tolerated the procedure well. Findings: The scope was passed directly into the upper esophagus and advanced to the third portion of the duodenum. The post bulbar duodenum, ampulla and duodenal bulb were normal with normal mucosa and conniventes. 2 cold biopsies were taken from the second portion of the duodenum for the disaccharidase assay. The scope was withdrawn through a normal duodenal bulb and pylorus into the stomach. There was bile reflux with mild linear reactive gastropathy of the antrum. The body and fundus of the stomach were normal. Cold biopsies were taken from the antrum. Upon retroflexion there was no hiatal hernia. The scope was then withdrawn into the esophagus. There was no evidence of reflux esophagitis or Williamson's. There were no rings, strictures, webs, corrugation or furrowing. There was no proximal esophageal inlet patch. There were tertiary contractions and evidence of mild esophageal dysmotility. The entire esophagus was dilated to 60 Mongolian/20 mm with a TTS hydrostatic balloon. There was mild resistance at the cricopharyngeus. The remainder of the esophageal mucosa was normal. Impression: 1. 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 Nonerosive GERD with mild esophageal dysmotility 3. Bile reflux with mild linear reactive gastropathy of antrum Plan: I will follow-up the biopsies and disaccharidase assay. Most of his symptoms of belching, hiccups and globus sensation are related to and driven by lower intestinal gas pressure gradients/high gas pressure buildup resulting in backflow of bile and peptic fluid from the duodenum into the stomach (duodenal reflux). This gas production (carbon dioxide, hydrogen, methane, etc.) from the lower intestinal tract is the byproduct of colonic bacterial fermentation. This colonic fermentation occurs when there is more carbohydrate (dietary starches, sugars and high residue plant fiber) substrate that does not get digested (in the middle or small intestine) or occurs when there is colonic fecal buildup and colonic bacterial overgrowth. This indeed leads to bloating and the gas pressure buildup with gas pressure gradients that do drive backflow. I would encourage continuation of the fiber bowel regimen daily. We will discuss additional treatment options. I do feel that the semaglutide is playing a role.
[2025-04-28 18:58] LABS: Interpretation Notes (.); Lactase 42.97 (>/= 14.0); Palatinase 15.19 (>/= 8.5); Reference Notes (.); Sucrase 66.68 (>/= 25.0)
== END | disposition home or self-care (01) ==
PROVIDERS: PCP Family Medicine; Visit Provider Internal Medicine Gastroenterology
DX: K21.9 Gastro-esophageal reflux disease without esophagitis (principal); K22.4 Dyskinesia of esophagus; K31.89 Other diseases of stomach and duodenum; K59.00 Constipation, unspecified; E78.5 Hyperlipidemia, unspecified; E11.9 Type 2 diabetes mellitus without complications; I25.119 Atherosclerotic heart disease of native coronary artery with unspecified angina pectoris; Z79.85 Long-term (current) use of injectable non-insulin antidiabetic drugs; Z79.82 Long term (current) use of aspirin; Z79.84 Long term (current) use of oral hypoglycemic drugs
CPT/HCPCS: 43239; 43249; 82657

== ENCOUNTER 2025-04-24 07:46 | Day surgery (SDC) | payer MEDICARE, SELFPAY ==
[2025-04-24 08:12] VITALS: BMI 29.5
[2025-04-24 08:22] VITALS: BP 116/79; PULSE 84; RESP 18; TEMP 36.6; O2SAT 96
[2025-04-24] MEDS: LACTATED RINGERS 1000ML 1,000 ML 50 ML IV (08:30)
--- NOTE | 2025-04-24 08:38 | P.PNANES_ITS ---
[facility] Disclaimer: The information contained in this section may have been updated after the patient was seen, as this information can be updated by other users. Medical History Visual disturbance Typical angina Diabetes mellitus Hyperlipidemia Abnormal nuclear cardiac imaging test Coronary artery disease Dyspnea Chest pain Abnormal CT scan of heart 340(2019) 430(2023) Abnormal blood test Surgical History History of eye surgery History of hand surgery Family History Other No significant family history Social History (Updated 04/24/25 @ 08:22 by Sumit Mcnamara RN) Smoking Status: Never smoker alcohol intake: never substance use type: denies use current occupational status: retired Travel in the last 8 weeks?: Inside the [place] Have you lived/traveled outside US in past 30 days?: No Contact w/someone who lives/traveled outside US past 30 days?: No Exposure to someone with infectious disease in past 14 days?: No Do you have a fever (greater than 100.4 F or 38 C)?: No Have you tested positive for COVID-19?: No Exposed to someone with COVID-19 in past 14 days?: No Do you have a sore throat?: No Do you have a cough?: No Do you have any weakness?: No Are you experiencing any nausea/vomitting?: No Do you have any diarrhea?: No Are you experiencing any unusual bleeding?: No Do you have any muscle aches/pain?: No Do you have any abdominal pain?: No Are you experiencing loss of taste or smell?: No [facility] Anesthesia Checklist Patient Identification Patient Identification: Verbal (Name & ) Structural Data Admitted From: Home Planned Operative Procedure/s: egd Consent for Planned Operative Procedure(s) Verified: Yes NPO Status Verified Time NPO: 00:00 Airway Assessment Mallampati Score:: Class II C-Spine Mobility Assessed: Yes TMJ Mobility Assessed: Yes Dentition: Good Dentition Neurological Assessment Level of Consciousness: Awake, Alert and Appropriate Anesthesia Plan Anesthesia Risk discussed: Yes Anesthesia Plan: Verified ASA Class: II Anesthesia Type: MAC
[2025-04-24 08:48] VITALS: BP 99/50; PULSE 81; RESP 16; TEMP 36.1; O2SAT 92
[2025-04-24 08:58] VITALS: BP 105/62; PULSE 78; RESP 16; O2SAT 94
[2025-04-24 09:08] VITALS: BP 101/55; PULSE 74; RESP 16; O2SAT 94
[2025-04-24 09:18] VITALS: BP 116/59; PULSE 79; RESP 16; O2SAT 95
== END 2025-04-24 09:18 | disposition home or self-care (01) ==
PROVIDERS: PCP Family Medicine; Visit Provider Internal Medicine Gastroenterology
PROC: 0DJ08ZZ Inspection of Upper Intestinal Tract, Via Natural or Artificial Opening Endoscopic (ICD-10-PCS; CPT 43239; principal; 2025-04-24 09:00)
DX: K21.9 Gastro-esophageal reflux disease without esophagitis (principal); K31.89 Other diseases of stomach and duodenum; K22.4 Dyskinesia of esophagus; K59.00 Constipation, unspecified; E78.5 Hyperlipidemia, unspecified; I25.119 Atherosclerotic heart disease of native coronary artery with unspecified angina pectoris; E11.9 Type 2 diabetes mellitus without complications; Z79.85 Long-term (current) use of injectable non-insulin antidiabetic drugs; Z79.82 Long term (current) use of aspirin
CPT/HCPCS: 43239; 43249; 88305; C1726; J2003; J2704; J7120